=== PATIENT | female | born 1960 | race Caucasian/White ===

== ENCOUNTER 2017-06-30 07:31 | Day surgery (SDC) | payer BC ==
[~2017-06-30 07:31] MED LIST: CEFAZOLIN 2 Gram 2 GM/50 ML BAG IVPB ONE; CLINDAMYCIN 600MG/50ML PREMIX 600 MG/50 ML BAG IVPB ONE
[2017-06-30] MEDS ORDERED: BUPIVACAINE 0.75% W/EPI MPF 30ML VIAL IVP ONE (07:32)
[2017-06-30] MEDS ORDERED: ACETAMINOPHEN 1,000 MG/100 ML BTL IV ONE (07:32)
[2017-06-30] MEDS ORDERED: METHYLPREDNISOLONE 40MG/VIAL IM ONE (07:32)
[2017-06-30] MEDS ORDERED: SEVOFLURANE 250 ML INH ONE (07:32)
[2017-06-30] MEDS ORDERED: MORPHINE SULFATE 5 MG/ML PFS IVP ONE (07:32)
[2017-06-30] MEDS ORDERED: KETOROLAC 30 MG/ML VIAL IVP ONE (07:32)
[2017-06-30] MEDS ORDERED: LIDOCAINE 2% MDV (20MG/ML) 20ML VIAL IV ONE (07:32)
[2017-06-30] MEDS ORDERED: HYDROCODONE/APAP 7.5/325MG TABLET PO ONE (07:32)
[2017-06-30] MEDS ORDERED: PROPOFOL 10 MG/ML VIAL IV ONE (07:32)
--- NOTE | 2017-06-30 20:25 | Operative Note ---
DATE: 06/30/17 PREOPERATIVE DIAGNOSIS: INTERNAL DERANGEMENT RIGHT KNEE. POSTOPERATIVE DIAGNOSES: 1. DIFFUSE SYNOVITIS. 2. 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 3. CHONDRAL LESION OF THE MEDIAL FEMORAL CONDYLE. 4. GRADE 3 CHONDROMALACIA WITH CHONDRAL LESION OF THE LATERAL FEMORAL CONDYLE. 5. DEGENERATIVE TEAR INVOLVING THE ANTERIOR AND LATERAL HORN OF THE LATERAL MENISCUS. 6. 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 7. MULTIPLE LOOSE BODIES X3. PROCEDURE: 1. RIGHT KNEE ARTHROSCOPY WITH PARTIAL LATERAL MENISCECTOMY. 2. RIGHT KNEE ARTHROSCOPY WITH COMPLETE SYNOVECTOMY. 3. RIGHT KNEE ARTHROSCOPY WITH REMOVAL OF LOOSE BODIES X3. 4. RIGHT KNEE ARTHROSCOPY WITH CHONDROPLASTY OF ALL THREE COMPARTMENTS. STAFF SURGEON: MARISOL SEE M.D. ANESTHESIA: GENERAL. PREPARATION: CHLORAPREP. INDIVIDUAL CONSIDERATIONS: NONE. PROCEDURE: The patient was taken to the Operating Room and placed supine on the operating table. She had a successful induction with general anesthetic. Her right lower extremity was prepped and draped in the usual fashion. The patient had a superior lateral inflow cannula placed. The skin was infiltrated with 0.75% Marcaine with Epinephrine prior. A stab wound was made and a blunt-tipped trocar for the inflow was placed. The knee was inflated with normal saline. An inferior medial and an inferior lateral portal were made in a similar fashion. The arthroscope was introduced through the inferior lateral portal up into the pouch. There was diffuse synovitis seen throughout the pouch and both gutters. There were two loose bodies in the medial gutter and one in the lateral gutter. The loose bodies were removed. Two were large and one was small. One was 1 x 2 cm, one was about 1 x 1 cm, and the other one was about 0.5 cm. In the patellofemoral compartment, there were grade 3 to 4 changes. This was smoothed with a shaver. Medially, she had a large flap chondral lesion of the medial femoral condyle centered at 45 degrees just medial to the midline about the size of maybe a quarter, luckily not down to bone and this was debrided. The tibial plateau had soft changes but was intact. The meniscus was intact. In the notch, the cruciates were normal. Laterally, she had a fringe tear of the lateral meniscus from the anterior to lateral horn, which was smoothed off with a shaver. A chondral lesion of the lateral femoral condyle extending from extension to about 90 degrees of flexion with loose peeling cartilage, again not down to bone. The meniscus was otherwise intact. After irrigation, the portals were closed with bruno and 20 mL of 0.25% plain Marcaine along with 40 mg of Depo-Medrol and 4 mg of Morphine were injected into the knee and a sterile Bulkee compressive dressing was applied. The patient tolerated the procedure well. Needle and sponge counts were correct. Estimated blood loss was minimal and she was taken back to Recovery in good condition. There were no complications. cc: Dr. Wyatt Romo JOB NUMBER: [id number] MTDD
== END 2017-06-30 10:45 | disposition home or self-care (01) ==
LOC: SUR 07:31
PROVIDERS: ATTEND Orthopaedic Surgery
DX: M23.241 Derangement of anterior horn of lateral meniscus due to old tear or injury, right knee (principal); M65.861 Other synovitis and tenosynovitis, right lower leg; M23.41 Loose body in knee, right knee; M22.41 Chondromalacia patellae, right knee
CPT/HCPCS: 29881; 29876; 01400; J1885; J2270; J3490; J1030